=== PATIENT | male | born 1990 | race Caucasian/White ===

== ENCOUNTER 2018-03-31 04:04 | Emergency (ER) | payer SELFPAY ==
[~2018-03-31] VITALS: Ht 175.3 cm; Wt 81.6 kg
[2018-03-31 04:05] VITALS: BP_SYST 128
[2018-03-31] MEDS: KETOROLAC TROMETHAMINE 60 MG/2 ML VIAL IM ONE ×2 (04:40→04:44)
[2018-03-31 04:51] VITALS: BP_SYST 128
== END 2018-03-31 04:49 | disposition home or self-care (01) ==
LOC: SED 04:04
DX: L02.413 Cutaneous abscess of right upper limb (principal); R03.0 Elevated blood-pressure reading, without diagnosis of hypertension; F17.210 Nicotine dependence, cigarettes, uncomplicated
CPT/HCPCS: 99283; J1885